=== PATIENT | male | born 1995 | race Caucasian/White ===

== ENCOUNTER → 2019-07-10 | Outpatient (CLI) | payer BC ==
--- NOTE | 2019-07-11 14:22 | EEG ---
DATE OF SERVICE: 07/10/2019 ELECTROENCEPHALOGRAM REPORT EEG NUMBER: [id number] performed on 07/10/2019. OBJECTIVE: The patient is a 24-year-old male with headaches and auditory hallucinations. DESCRIPTION: This is a digital study. Electrodes are placed according to the international 10-20 system. Bipolar and referential montages are available. Activation procedures typically include hyperventilation and intermittent photic stimulation. INTERPRETATION: The waking background consists of 8-9 Hz, 50-100 microvolt activity, symmetrically distributed over parietooccipital regions and reactive to eye opening. Hyperventilation and intermittent photic stimulation are noncontributory. Stage 1 sleep is achieved with normal electroencephalogram patterns. IMPRESSION: This electroencephalogram with the patient awake and asleep is within normal limits. There is no focal, paroxysmal, or epileptiform activity. Thank you for letting us help with the patient's care. CHELA PALACIO MD DR: KOTA/raffaele JOB#: [id number] / [id number] FABIENNE Schultz MD
== END | disposition home or self-care (01) ==
LOC: RT 09:32
PROVIDERS: ATTEND Psychiatry & Neurology Neurology with Special Qualifications in Child Neurology
DX: G43.019 Migraine without aura, intractable, without status migrainosus (principal); R20.8 Other disturbances of skin sensation; R44.0 Auditory hallucinations
CPT/HCPCS: 95816

== ENCOUNTER → 2019-09-06 | Outpatient (CLI) | payer BC ==
--- NOTE | 2019-09-06 16:31 | RAD ---
BRAIN W/O CONTRAST Date: 09/06/2019 3:30 PM Indication: Migraines Comparison: None. Technique: Multiplanar multisequence MRI of the brain was performed without intravenous contrast using the standard protocol. Findings: No acute infarct. No acute or chronic hemorrhage. The ventricles are normal in size and configuration without hydrocephalus. The scalp and calvarium are normal. The pituitary and sella are normal. No Chiari malformation. The visualized upper cervical spine is normal. The visualized orbits and globes are normal. The visualized paranasal sinuses are clear. The mastoid air cells are clear. Normal flow voids within the vertebral, basilar, and internal carotid arteries indicating patency. IMPRESSION: Normal brain MRI. Electronically signed by: Braeden Meade MD (09/06/2019 4:28 PM) [facility] [id number]
== END | disposition home or self-care (01) ==
LOC: MRI 15:27
PROVIDERS: ATTEND Psychiatry & Neurology Neurology with Special Qualifications in Child Neurology
DX: G43.019 Migraine without aura, intractable, without status migrainosus (principal); R20.8 Other disturbances of skin sensation; R44.0 Auditory hallucinations; Z90.49 Acquired absence of other specified parts of digestive tract
CPT/HCPCS: 70551